=== PATIENT | male | born 1930 | race Caucasian/White ===

== ENCOUNTER 2018-10-29 23:54 | Emergency (ER) | payer MEDICARE ==
[2018-10-30 00:25] LABS: #Lymphocytes 0.6 thou/uL (1.20-3.40); #Monocytes 0.9 thou/uL (0.11-0.59); #Neutrophils 11.2 thou/uL (1.40-6.50); %Basophils 0.1 % (0.0-1.0); %Eosinophils 0.3 % (0.0-10.0); %Lymphocytes 4.7 % (21.0-51.0); %Monocytes 6.8 % (0.0-10.0); %Neutrophils 88.2 % (42.0-75.0); Hemoglobin 11.2 g/dL (14.0-18.0); Mean Corpuscular HGB CONC 34.1 g/dL (32.0-36.0); Mean Corpuscular Hemoglobin 32.5 pg (27.0-31.0); Mean Corpuscular Volume 95.4 fL (78.0-98.0); Mean Platelet Volume 7.9 fL (7.4-10.4); Platelet Count 136 thou/uL (130-400); RBC Distribution Width 11.8 % (11.5-14.5); Red Blood Cell (RBC) Count 3.45 mill/uL (4.70-6.10); White Blood Cell (WBC) Count 12.7 thou/uL (4.8-10.8)
[2018-10-30 00:30] LABS: INR-International Normal Ratio 1.6; Prothrombin Time 18.7 SEC (12.0-14.7)
[2018-10-30 00:47] LABS: ALT (SGPT) 15 U/L (8-55); AST (SGOT) 21 U/L (5-34); Albumin 3.4 g/dL (3.4-4.8); Alkaline Phosphatase 91 U/L (40-150); Anion Gap 13 mmol/L (10-20); BUN (Urea Nitrogen) 33 mg/dL (8.4-25.7); Calc. Creatinine Clearance 0 mL/min (70-130); Calcium 9.1 mg/dL (7.8-10.44); Carbon Dioxide 23 mmol/L (23-31); Chloride 107 mmol/L (98-107); Estimated GFR-MDRD 67; Globulin 2.3 g/dL (2.4-3.5); Glucose 218 mg/dL (83-110); Lipase Less than 4 U/L (8-78); Potassium 4.1 mmol/L (3.5-5.1); Protein, Total 5.7 g/dL (5.8-8.1); Sodium 139 mmol/L (136-145)
[2018-10-30 01:13] LABS: CK (CPK) 124 U/L (30-200)
--- NOTE | 2018-10-30 07:33 | RAD ---
XR Femur Rt 2 View STANDARD History: Injury. Trauma. Comparison: None. Findings: No acute fracture or malalignment of the right femur. Cortical step-off the right superior and inferior pubic rami. No significant knee joint effusion. Impression: Right superior and inferior pubic rami fractures.
--- NOTE | 2018-10-30 07:35 | CT ---
PRELIMINARY REPORT/[facility]/EMERGENCY AFTER HOURS PROCEDURE: EXAM: CT Head Without Contrast EXAM DATE/TIME: 10/30/2018 12:33 AM CLINICAL HISTORY: 87 years old, male; Injury or trauma; Initial encounter; Abrasion; Patient HX: *level 2 trauma* 87 y/ o m presents to ED C/O injury as caused when a piece of farming equipment rolled on top of pt's hips. PT was working on a shredder yesterday at approx 1200, when it rolled and pinned him down. PT C/O R hip pain with radiation to R knee, L hand pain. Per EMS, PT has contusion to palmar aspect of L hand. Vs en route include bld pressure 120/80, hr in 70s, gcs 15. Additionally, family reports syncopal ep isode at 1630. TECHNIQUE: Imaging protocol: Computed tomography images of the head without contrast. COMPARISON: No relevant prior studies available. FINDINGS: Brain: There is age-related diffuse cerebral and cerebellar volume loss and chronic microvascular isc hemic disease. Ventricles: Normal. No ventriculomegaly. Bones/joints: Unremarkable. No acute fracture. Sinuses: There is a mucous retention cyst or polyp in the right maxillary sinus and mucosal thickenin g in the maxillary sinuses. Mastoid air cells: Visualized mastoid air cells are well aerated. No mastoid effusion. Soft tissues: Unremarkable. IMPRESSION: 1. There is age-related diffuse cerebral and cerebellar volume loss and chronic microvascular ischemi c disease. 2. No acute intracranial pathology. Thank you for allowing us to participate in the care of your patient. Dictated and Authenticated by: Robi Ackerman MD 10/30/2018 12:50 AM Central Time ([place] & [place]) FINAL REPORT HEAD CT WITHOUT CONTRAST: Date: 10/30/18 HISTORY: Trauma. Fall. Pain. FINDINGS: No parenchymal hemorrhage or extra-axial hematoma. No midline shift. Basilar cisterns are patent. Bra in volume is age-appropriate. Cortical mcneil-white matter differentiation preserved. Right maxillary s inus disease. Intact calvarium. IMPRESSION: This report is in agreement with the preliminary report by [facility]. No intracranial post-traumatic seque lae. Age-appropriate atrophy and chronic small vessel ischemic changes. POS: OFF
--- NOTE | 2018-10-30 07:36 | RAD ---
XR Hand Lt 3 View STANDARD History: Trauma Comparison: None Findings: 2 x 3 mm radiopaque foreign object in the lateral soft tissues at the level of the index fi nger proximal interphalangeal joint. Extensive multifocal interphalangeal joint space narrowing. Soft tissue laceration adjacent to the radiopaque foreign object. Dorsal osteophyte fracture of the ring finger distal phalanx base. Impression: 1. 2 x 3 mm radiopaque foreign object in lateral soft tissues index finger proximal interphalangeal j oint. 2. Dorsal osteophyte fracture distal phalanx base ring finger with intra-articular extension.
--- NOTE | 2018-10-30 07:36 | RAD ---
XR Tib Fib Lt Leg 2 View History: Trauma Comparison: None. Findings: Mild soft tissue swelling. The tibia and fibula are intact. Mild vascular calcifications. Numerous phleboliths in the soft tissues. Mild medial compartment joint space narrowing. Impression: No acute fracture or malalignment. Soft tissue edema can be seen with contusion.
--- NOTE | 2018-10-30 07:58 | CT ---
PRELIMINARY REPORT/[facility]/EMERGENCY AFTER HOURS PROCEDURE: EXAM: CT Chest With Contrast EXAM DATE/TIME: 10/30/2018 12:37 AM CLINICAL HISTORY: 87 years old, male; Injury or trauma; Abrasion; Patient HX: *level 2 trauma* 87 y/o m presents to ED C/O injury as caused when a piece of farming equipment rolled on top of pt's hips. PT was working on a shredder yesterday at approx 1200, when it rolled and pinned him down. PT C/O R hip pain with radia tion to R knee, L hand pain. Per EMS, PT has contusion to palmar aspect of L hand. Vs en route includ e bld pressure 120/80, hr in 70s, gcs 15. Additionally, family reports syncopal episode at 1630. TECHNIQUE: Imaging protocol: Axial computed tomography images of the chest with intravenous contrast. Coronal an d sagittal reformatted images were created and reviewed. COMPARISON: No relevant prior studies available. FINDINGS: Thyroid: The thyroid gland is normal. Lungs: Unremarkable. No consolidation. No masses. Pleural space: There are trace bilateral pleural effusions with dependent atelectasis. Heart: Unremarkable. No cardiomegaly. No pericardial effusion. Aorta: Unremarkable. No aortic aneurysm. Lymph nodes: Unremarkable. No enlarged lymph nodes. Bones/joints: Unremarkable. No acute fracture. Soft tissues: Unremarkable. IMPRESSION: No acute thoracic pathology. Thank you for allowing us to participate in the care of your patient. Dictated and Authenticated by: Agustin Delarosa MD 10/30/2018 12:52 AM Central Time ([place] & [place]) CT Abdomen and Pelvis With Contrast EXAM DATE/TIME: 10/30/2018 12:37 AM CLINICAL HISTORY: 87 years old, male; Injury or trauma; Abrasion; Patient HX: *level 2 trauma* 87 y/o m presents to ED C/O injury as caused when a piece of farming equipment rolled on top of pt's hips. PT was working on a shredder yesterday at approx 1200, when it rolled and pinned him down. PT C/O R hip pain with radia tion to R knee, L hand pain. Per EMS, PT has contusion to palmar aspect of L hand. Vs en route includ e bld pressure 120/80, hr in 70s, gcs 15. Additionally, family reports syncopal episode at 1630. TECHNIQUE: Imaging protocol: Axial computed tomography images of the abdomen and pelvis with intravenous contras t. Coronal and sagittal reformatted images were created and reviewed. COMPARISON: No relevant prior studies available. FINDINGS: Liver: There are no focal liver lesions identified. Gallbladder and bile ducts: The gallbladder is normal. There is no evidence of biliary ductal dilatio n. Pancreas: There is fatty infiltration of the pancreas. Spleen: The spleen demonstrates punctate calcifications, consistent with remote granulomatous organis m exposure. Adrenals: The adrenal glands are normal. Kidneys and ureters: There is a simple cyst in the right kidney. There are small benign bilateral par apelvic cysts. There are nonobstructing bilateral renal pelvic calculi. Stomach and bowel: The stomach is normal. Appendix: No evidence of appendicitis. Intraperitoneal space: Normal. No free air. No significant fluid collection. Vasculature: Normal. No abdominal aortic aneurysm. Lymph nodes: Normal. No enlarged lymph nodes. Bladder: There is a diverticulum which contains a stone at the right base of the urinary bladder. Reproductive: Unremarkable as visualized. Bones/joints: There are acute minimally displaced right superior and inferior pubic rami fractures. Soft tissues: Unremarkable. IMPRESSION: 1. There are acute minimally displaced right superior and inferior pubic rami fractures. 2. There is a diverticulum which contains a stone at the right base of the urinary bladder. Thank you for allowing us to participate in the care of your patient. Dictated and Authenticated by: Agustin Delarosa MD 10/30/2018 12:59 AM Central Time ([place] & [place]) FINAL REPORT CHEST CT WITH CONTRAST ABDOMEN CT WITH CONTRAST PELVIC CT WITH CONTRAST LIMITED CT OF THORACIC AND LUMBAR SPINE: Date: 10/30/18 HISTORY: Trauma. Pain. FINDINGS: CHEST CT: No post-traumatic changes in the chest. Heart size is upper normal. No significant pericardial fluid. Thoracic and abdominal aorta have a normal caliber. Trachea and central bronchi are patent. Dependent atelectatic changes. No consolidations or mass. No pneumothorax or pleural effusion. ABDOMEN/PELVIS CT: No solid organ abnormality. Symmetric enhancement of the kidneys. No obstructive uropathy. Exophytic hypodensities emanating from the upper pole of the right kidney are presumed to be due to cysts or po ssible nonspecific perinephric fluid. Visualized alimentary canal, mesentery, and bowel loops are mad[place] ssly unremarkable. OSSEOUS STRUCTURES: Fractures involving the right inferior and superior pubic rami. LIMITED CT OF THORACIC AND LUMBAR SPINE: No evidence of fracture. IMPRESSION: This report is in agreement with the preliminary report by [facility]. No post-traumatic changes in the van st or abdomen. Right pubic rami fractures. Additional findings as reported in the preliminary report by [facility]. POS: OFF
[2018-10-30] MEDS ORDERED: ISOVUE-370 76%-LOCM 1 ML ONE (10:02)
== END 2018-10-30 02:15 | disposition home or self-care (01) ==
LOC: ERS 23:54
DX: S32.591A Other specified fracture of right pubis, initial encounter for closed fracture (principal); S62.512A Displaced fracture of proximal phalanx of left thumb, initial encounter for closed fracture; E78.5 Hyperlipidemia, unspecified; I10 Essential (primary) hypertension; E03.9 Hypothyroidism, unspecified; W20.8XXA Other cause of strike by thrown, projected or falling object, initial encounter
CPT/HCPCS: 36415; 70450; 71260; 74177; 80053; 82550; 83690; 83880; 84484; 85025; 85610; 85730; 93005; 96360; 96361; G0390; Q9966

== ENCOUNTER 2018-11-04 13:50 | Emergency (ER) | payer MEDICARE ==
[2018-11-04 15:28] LABS: Hemoglobin 10.6 g/dL (14.0-18.0); Mean Corpuscular HGB CONC 33.2 g/dL (32.0-36.0); Mean Corpuscular Hemoglobin 31.5 pg (27.0-31.0); RBC Distribution Width 12.1 % (11.5-14.5); Red Blood Cell (RBC) Count 3.37 mill/uL (4.70-6.10); White Blood Cell (WBC) Count 6.8 thou/uL (4.8-10.8)
[2018-11-04 15:50] LABS: ALT (SGPT) 14 U/L (8-55); AST (SGOT) 22 U/L (5-34); Albumin 3.6 g/dL (3.4-4.8); Alkaline Phosphatase 98 U/L (40-150); Anion Gap 14 mmol/L (10-20); BUN (Urea Nitrogen) 19 mg/dL (8.4-25.7); Bilirubin, Total 1.9 mg/dL (0.2-1.2); Calc. Creatinine Clearance 0 mL/min (70-130); Calcium 8.7 mg/dL (7.8-10.44); Carbon Dioxide 20 mmol/L (23-31); Chloride 108 mmol/L (98-107); Estimated GFR-MDRD Greater than 90; Globulin 2.6 g/dL (2.4-3.5); Glucose 113 mg/dL (83-110); Potassium 4.2 mmol/L (3.5-5.1); Protein, Total 6.2 g/dL (5.8-8.1); Sodium 138 mmol/L (136-145)
[2018-11-04 15:58] LABS: #Eosinphils 0.1 thou/uL (0.0-0.7); #Monocytes 0.8 thou/uL (0.11-0.59); #Neutrophils 4.9 thou/uL (1.40-6.50); %Basophils 0.3 % (0.0-1.0); %Eosinophils 1.3 % (0.0-10.0); %Lymphocytes 14.9 % (21.0-51.0); %Neutrophils 71.6 % (42.0-75.0); Mean Platelet Volume 8.3 fL (7.4-10.4); Platelet Count 79 thou/uL (130-400); Platelet Morphology Comment Appears Decreased
--- NOTE | 2018-11-04 16:07 | RAD ---
CHEST ONE VIEW ABDOMEN TWO VIEWS: HISTORY: Pain. FINDINGS: Chest one view: Atherosclerosis of the aortic knob. Normal cardiac silhouette. Pulmonary vessels and hilum are normal . Costophrenic angles are clear. Possible focal early infiltrate in the right upper lobe. No pneumothorax or osseous abnormalities. Abdomen 2 views: Nonspecific bowel gas pattern. No suspicious densities in the abdomen or pelvis. No differential air- fluid levels. No pneumoperitoneum. Moderate amount fecal material in the colon. There does appear to be a segment of air-filled loops of small bowel in the left hemiabdomen. IMPRESSION: 1. Right upper lobe infiltrate. 2. Scattered fecal material. Correlate for constipation. 3. Prominent small bowel loop in the left hemiabdomen. Focal ileus or early obstructive process are d ifferential considerations. Continued surveillance is recommended. Transcribed Date/Time: 11/04/2018 4:32 PM
[2018-11-04] MEDS ORDERED: Magnesium Citrate 300 ML BOT ONE (16:53)
--- NOTE | 2018-11-04 18:46 | ULT ---
LEFT LOWER EXTREMITY VENOUS DUPLEX ULTRASOUND INCLUDING COLOR AND SPECTRAL DOPPLER IMAGING: History: Edema and swelling. Follow up trauma. FINDINGS: Exam performed from groin to ankle including visualized greater saphenous, common femoral, superficia l femoral, profunda femoral, popliteal, trifurcation and posterior tibial vein regions. There is phas ic flow at all levels. Normal compressibility and augmentation. No intraluminal thrombus. IMPRESSION: No evidence for deep venous thrombosis. POS: [place]
== END 2018-11-04 19:20 | disposition home or self-care (01) ==
LOC: ERS 13:50
DX: S80.12XA Contusion of left lower leg, initial encounter (principal); K59.00 Constipation, unspecified; I10 Essential (primary) hypertension; E03.9 Hypothyroidism, unspecified; N40.0 Benign prostatic hyperplasia without lower urinary tract symptoms; E78.5 Hyperlipidemia, unspecified; Z79.899 Other long term (current) drug therapy; Z79.82 Long term (current) use of aspirin; V84.9XXA Unspecified occupant of special agricultural vehicle injured in nontraffic accident, initial encounter
CPT/HCPCS: 36415; 74022; 80053; 83880; 84484; 85025